=== PATIENT | female | born 1960 | race Caucasian/White ===

== ENCOUNTER 2017-11-24 13:26 | Day surgery (SDC) | payer BC ==
[~2017-11-24 13:26] MED LIST: Buffered Lidocaine 0.9% SYRIN* 5 ML/SYR SYRINGE INTRADERM ONE
[2017-11-24] MEDS ORDERED: ceFAZolin 2 GM PREMIX (*) 2 GM/50 ML BAG IVPB ONE (13:43)
[2017-11-24] MEDS ORDERED: Lidocain 1% EPI 1:100,000 * 30 ML MDV ONE (14:45)
[2017-11-24] MEDS ORDERED: Bupivacaine 0.25% SDV* 30 ML ONE (14:45)
[2017-11-24] MEDS ORDERED: fentaNYL* 50 MCG/ML 2 ML VIAL (100 MCG VIAL) ONE (15:00)
[2017-11-24] MEDS ORDERED: Midazolam* 1 MG/ML 5 ML VIAL (5 MG) ONE (15:01)
[2017-11-24] MEDS ORDERED: Propofol* 10 MG/ML 20 ML BTL IV PUSH ONE (15:01)
[2017-11-24] MEDS ORDERED: Acetaminophen TAB* 325 MG PO PRN (15:24)
[2017-11-24] MEDS ORDERED: Naloxone* 0.4 MG/ML 1 ML VIAL IV PRN (15:24)
[2017-11-24 16:18] VITALS: BP 134/71
== END 2017-11-24 16:40 | disposition home or self-care (01) ==
LOC: OREAST 13:26
PROVIDERS: ATTEND Plastic Surgery
DX: D03.71 Melanoma in situ of right lower limb, including hip (principal); I10 Essential (primary) hypertension; K21.9 Gastro-esophageal reflux disease without esophagitis; J45.909 Unspecified asthma, uncomplicated
CPT/HCPCS: 88305; J0690; J2250; J2704; J3010

== ENCOUNTER 2018-07-09 06:56 | Observation (INO) | payer BC ==
[2018-07-09] MEDS ORDERED: Ondansetron INJ* 2 MG/ML VIAL IV ONE (08:00)
[2018-07-09] MEDS ORDERED: NS 0.9% 1000 ML* 1,000 ML IV ONE (08:00)
--- NOTE | 2018-07-09 08:00 | ED ---
GI/ HPI - HPI Summary HPI Summary: This patient is a 58 year old F presenting to [facility] accompanied by a male with a chief complaint of diarrhea with bright red blood since yesterday. The patient rates the pain 8/10 in severity. Symptoms alleviated by position. Patient reports nausea and non-radiating left-sided abdominal pain. Patient denies vomiting or right sided abdominal pain. The diarrhea started as clear and then had bright red blood. She denies recent antibiotic use. She states that she has been having intermittent diarrhea for a while but yesterday it was much more painful and became bloody. She states that her mother has bladder cancer but she has recently had her bladder tested. No PMHx gallbladder removal. PMHX Hysterectomy, HTN, GERD, hiatal hernia, carpal tunnel, knee surgery. SHx occasional EtOH. No SHx tobacco use, drug use. FHX bladder CA. Home Medications Medication Instructions Recorded Confirmed Type Conjugated Estrogens TAB* 0.625 mg PO QAM 11/21/14 11/18/17 History [Premarin TAB*] DULoxetine DR CAP* [Cymbalta CAP*] 60 mg PO QAM 11/21/14 11/18/17 History Diclofenac Sodium [Diclofenac 75 mg PO BID 11/21/14 11/18/[address]] Loratadine [Alavert] 10 mg PO QAM PRN 11/21/14 11/24/17 History Losartan/HCTZ 100/25 (NF) [Hyzaar 1 tab PO QAM 11/21/14 11/18/17 History 100/25 (NF)] Montelukast Sodium TAB* [Singulair 10 mg PO QAM 11/21/14 11/18/17 History TAB*] Pantoprazole TAB (NF) [Protonix 40 mg PO QAM 11/21/14 11/18/17 History TAB (NF)] amLODIPine TAB* [Norvasc TAB*] 5 mg PO QPM 11/21/14 11/18/17 History Gabapentin CAP(*) [Neurontin 300 300 mg PO TID PRN 12/11/15 11/18/17 History CAP(*)] Naproxen 500 mg PO BID PRN 12/11/15 11/18/17 History Tizanidine HCl [Zanaflex] 4 mg PO BID 06/09/16 05/18/18 History Cyclobenzaprine TAB* [Flexeril 10 10 mg PO BID PRN 11/24/17 11/24/17 History MG TAB*] - History of Current Complaint Chief Complaint: EDAbdPain Time Seen by Provider: 07/09/18 07:36 Stated Complaint: ABD PAIN Hx Obtained From: Patient Onset/Duration: Started Days Ago - 1 Timing: Intermittent Severity: Moderate Current Severity: Moderate - 8/10 Pain Intensity: 8 Location of Pain: LLQ Associated Signs and Symptoms: Positive: Nausea, Bright Red Blood w/Stool, Diarrhea, Abdominal Pain - left. Negative: Dizziness, Vomiting - Allergy/Home Medications Allergies/Adverse Reactions: Allergies Allergy/AdvReac Type Severity Reaction Status Date / Time latex Allergy Severe Rash And Verified 11/24/17 13:53 Itching bacitracin Allergy Rash Verified 07/09/18 08:24 [From Neosporin ([id number])] neomycin Allergy Rash Verified 07/09/18 08:24 [From Neosporin ([id number])] polymyxin B Allergy Rash Verified 07/09/18 08:24 [From Neosporin ([id number])] tramadol Allergy Itching Verified 07/09/18 08:24 ENVIRONMENTAL/SEASONAL Allergy Intermediate SNEEZING, Uncoded 11/24/17 13:53 HAYFEVER ITCHY WATERY EYES Home Medications: Home Medications Conjugated Estrogens TAB(NF) [Premarin 0.45 MG (NF)] 0.45 mg PO DAILY 07/09/18 [ History Confirmed 07/09/18] Diclofenac Sodium 75 mg PO BID 07/09/18 [History Confirmed 07/09/18] Mometasone/Formoter 200/5 MDI* [Dulera 200/5 MDI*] 2 puff INH BID 07/09/18 [ History Confirmed 07/09/18] PMH/Surg Hx/FS Hx/Imm Hx Endocrine/Hematology History: Denies: Hx Diabetes Cardiovascular History: Reports: Hx Hypertension - ON MEDICATION FOR Denies: Hx Pacemaker/ICD, Other Cardiovascular Problems/Disorders Respiratory History: Reports: Hx Asthma - seasonal Denies: Other Respiratory Problems/Disorders GI History: Reports: Hx Gastroesophageal Reflux Disease - ON MEDICATION FOR, Hx Hiatal Hernia Denies: Other GI Disorders Musculoskeletal History: Reports: Hx Arthritis - LEFT KNEE, HANDS, back, Hx Tendonitis, Other Musculoskeletal History - right wrist/hand and arm issues since surgeries and other issues Sensory History: Reports: Hx Contacts or Glasses - CONTACTS, GLASSES Denies: Hx Hearing Aid Opthamlomology History: Reports: Hx Contacts or Glasses - CONTACTS, GLASSES Neurological History: Reports: 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 Denies: Other Neuro Impairments/Disorders Psychiatric History: Reports: Hx Anxiety - mild, on cymbalta for pain but helps with this, Hx Depression - MEDICATION, Hx Panic Disorder - Cancer History Hx Chemotherapy: No Hx Radiation Therapy: No - Surgical History Surgery Procedure, Year, and Place: ARTHROSCOPIC KNEE,LEFT 2003, HYSTERECTOMY 2002, RIGHT CARPAL TUNNEL 2011, RIGHT CUBICAL TUNNEL 2012, LEFT FINGER FX 1994 , RIGHT FOOT BUNIONECTOMY 2005, D-N-C'S X2,BASAL JOINT SURGERY RT THUMB 12/06/13, ARTHROSCOPIC RIGHT KNEE 2014 Hx Anesthesia Reactions: No Infectious Disease History: No Infectious Disease History: Denies: Traveled Outside the [place] in Last 30 Days - Family History Known Family History: Positive: Other - bladder CA - Social History Alcohol Use: Occasionally Alcohol Amount: [place]OLIDA[place] Substance Use Type: Reports: None Smoking Status (MU): Never Smoked Tobacco Have You Smoked in the Last Year: No Review of Systems Positive: Abdominal Pain - left, Diarrhea - bloody, Nausea, Other - right sided abd pain. Negative: Vomiting All Other Systems Reviewed And Are Negative: Yes Physical Exam - Summary Physical Exam Summary: VITAL SIGNS: Reviewed. GENERAL: Patient is a well-developed and nourished female who is lying comfortable in the stretcher. Patient is not in any acute respiratory distress. HEAD AND FACE: No signs of trauma. No ecchymosis, hematomas or skull depressions. No sinus tenderness. EYES: PERRLA, EOMI x 2, No injected conjunctiva, no nystagmus. EARS: Hearing grossly intact. Ear canals and tympanic membranes are within normal limits. MOUTH: Oropharynx within normal limits. NECK: Supple, trachea is midline, no adenopathy, no JVD, no carotid bruit, no c- spine tenderness, neck with full ROM. CHEST: Symmetric, no tenderness at palpation LUNGS: Clear to auscultation bilaterally. No wheezing or crackles. CVS: Regular rate and rhythm, S1 and S2 present, no murmurs or gallops appreciated. ABDOMEN: Soft. Left-sided abdominal tenderness without guarding or rebound. No signs of distention. No masses palpated. Bowel sounds are normal. EXTREMITIES: FROM in all major joints, no edema, no cyanosis or clubbing. NEURO: Alert and oriented x 3. No acute neurological deficits. Speech is normal and follows commands. SKIN: Dry and warm GCS: 15 Triage Information Reviewed: Yes Vital Signs On Initial Exam: Initial Vitals Temp Pulse Resp BP Pulse Ox 97.3 F 68 16 148/79 95 07/09/18 07:27 07/09/18 07:27 07/09/18 07:27 07/09/18 07:27 07/09/18 07:27 Vital Signs Reviewed: Yes Diagnostics - Vital Signs Vital Signs Temp Pulse Resp BP Pulse Ox 07/09/18 07:27 97.3 F 68 16 148/79 95 - Laboratory Result Diagrams: 07/09/18 12:08 07/09/18 07:25 Lab Statement: Any lab studies that have been ordered have been reviewed, and results considered in the medical decision making process. - CT A/P CT Interpretation Completed By: Radiologist Summary of CT Findings: 1. Diverticulosis with very mild descending pericolonic infiltration of the surrounding peritoneal fat which could be seen in the setting of early diverticulitis. 2. Chronic, degenerative and iatrogenic findings described in the body the report unlikely to be related to the patient' s current clinical presentation. ED physician has reviewed this report - EKG 08:11 Cardiac Rate: NL - 63 bpm EKG Rhythm: Sinus Rhythm ST Segment: Normal Summary of EKG Findings: No ST elevations GIGU Course/Dx - Course Course Of Treatment: This patient is a 58 year old F presenting to [facility] accompanied by a male with a chief complaint of diarrhea with bright red blood since yesterday. The patient rates the pain 8/10 in severity. Symptoms alleviated by position. Patient reports nausea and non-radiating left-sided abdominal pain. Patient denies vomiting or right sided abdominal pain. The diarrhea started as clear and then had bright red blood. She denies recent antibiotic use. She states that she has been having intermittent diarrhea for a while but yesterday it was much more painful and became bloody. She states that her mother has bladder cancer but she has recently had her bladder tested. No PMHx gallbladder removal. PMHX Hysterectomy, HTN, GERD, hiatal hernia, carpal tunnel, knee surgery. SHx occasional EtOH. No SHx tobacco use, drug use. FHX bladder CA. Blood work without any significant abnormality except for for WBCs of 12.1, hemoglobin 11.3 hematocrit 35 platelets 267. Is no bandemia. Potassium at 3.4 for which the patient was given potassium chloride. CRP history 4.27 and the urinalysis is negative for UTI. In the ED course the patient was given IV fluids for hydration and she was given morphine for the pain. When she was in the ER she had 2 episodes of significant rectal bleed. It was bright red in her rectum. Abdominal pelvic CT impression: diverticulosis with a very mild ascending very colonic infiltration of the surrounding peritoneal fat which could be seen in the setting of elderly diverticulitis. Chronic degenerative iatrogenic findings. Therefore, she was given ciprofloxacin and Flagyl. Because of the rectal bleed I decided to admit the patient to the hospital services for observation. I discussed the case with Dr. Hodges from the hospital services who accepted the patient for admission. Patient is hemodynamically stable alert oriented 3. - Diagnoses Provider Diagnoses: Diverticulitis, GI bleed - Physician Notifications Discussed Care Of Patient With: Tanvir Hodges Time Discussed With Above Provider: 11:25 Instructed by Provider To: Admit As Inpatient Discharge - Sign-Out/Discharge Documenting (check all that apply): Patient Departure - admission - Discharge Plan Condition: Fair Disposition: ADMITTED TO [facility] - Billing Disposition and Condition Condition: FAIR Disposition: Admitted to [facility] - Attestation Statements Document Initiated by Liz: Yes Documenting Scribe: Jian Chow Provider For Whom Liz is Documenting (Include Credential): Dino Jones MD Scribe Attestation: Jian Vega, davinaed for Dino Jones MD on 07/09/18 at 1851. Scribe Documentation Reviewed: Yes Provider Attestation: The documentation as recorded by the Jian dong accurately reflects the service I personally performed and the decisions made by me, Dino Jones MD Status of Scribe Document: Viewed
[2018-07-09] MEDS ORDERED: Morphine VIAL* 4 MG/ML VIAL (1 ml vial) IV ONE ×2 (08:04→10:33)
[2018-07-09 08:27] LABS: ABS Basophils 0.1 10^3/ul (0-0.2); ABS Eosinophils 0.4 10^3/ul (0-0.6); ABS Lymphocytes 2.8 10^3/ul (1.0-4.8); ABS Monocytes 0.7 10^3/ul (0-0.8); ABS Neutrophils 8.1 10^3/ul (1.5-7.7); ABS Nucleated RBC 0 10^3/ul; Eosinophil % 3.6 %; Hematocrit 35 % (35-47); Hemoglobin 11.3 g/dl (12.0-16.0); Lymphocyte % 23.1 %; Mean Corpuscular HGB Conc 33 g/dl (31-36); Mean Corpuscular Hemoglobin 26 pg (27-31); Mean Corpuscular Volume 79 fL (80-97); Mean Platelet Volume 7.9 fL (7.4-10.4); Nucleated Red Blood Cells % 0.1; Platelet Count 267 10^3/ul (150-450); Red Cell Distribution Width 15 % (10.5-15); White Blood Count 12.1 10^3/ul (3.5-10.8)
[2018-07-09 08:46] LABS: Albumin 3.6 g/dL (3.2-5.2); Albumin/Globulin Ratio 1.1 (1-3); BUN/Creatinine Ratio 27.6 (8-20); C Reactive Protein 24.27 mg/L (<8.01); Globulin 3.3 g/dL (2-4); Magnesium 1.9 mg/dL (1.9-2.7); Potassium 3.4 mmol/L (3.5-5.0); Total Bilirubin 0.3 mg/dL (0.2-1.0); Total Protein 6.9 g/dL (6.4-8.9)
[2018-07-09] MEDS ORDERED: Iohexol 300* (CONTRAST) 10 ML SDV IV ONE (10:00)
[2018-07-09 10:17] LABS: Urine Appearance Clear; Urine Bilirubin Negative (Negative); Urine Blood Negative (Negative); Urine Color Yellow; Urine Glucose Negative (Negative); Urine Ketones Negative (Negative); Urine Nitrite Negative (Negative); Urine Protein Negative (Negative); Urine Specific Gravity 1.009 (1.010-1.030); Urine Urobilinogen Negative (Negative)
[2018-07-09] MEDS ORDERED: metroNIDAZOLE TAB* 250 MG PO ONE (11:10)
[2018-07-09] MEDS ORDERED: Ciprofloxacin 400MG IVPREMIX(* 400 MG/200 ML BAG IVPB ONE (11:12)
[2018-07-09] MEDS ORDERED: Potassium Chlor TAB* 20 MEQ TAB.ER PO ONE (11:14)
[2018-07-09] MEDS ORDERED: Ondansetron INJ* 2 MG/ML VIAL IV PRN (12:18)
[2018-07-09] MEDS ORDERED: NS 0.9% 1000 ML* 1,000 ML IV SCH (12:30)
[2018-07-09] MEDS ORDERED: Enoxaparin(*) 40 MG/0.4 ML SYR SUBCUT SCH (13:00)
[2018-07-09 13:08] LABS: Hematocrit 33 % (35-47); Hemoglobin 10.5 g/dl (12.0-16.0)
[2018-07-09] MEDS: metroNIDAZOLE TAB* 250 MG PO SCH ×2 (14:20→19:27)
[2018-07-09] MEDS: Acetaminophen TAB* 325 MG PO PRN ×2 (14:20→18:30)
[2018-07-09] MEDS ORDERED: amLODIPine TAB* 5 MG PO SCH (18:00)
--- NOTE | 2018-07-09 18:29 | HP ---
AMENDED REPORT NOW INCLUDES DESIGNATED COSIGNER CC: Dr. Omid Perez * HISTORY AND PHYSICAL: DATE OF ADMISSION: 07/09/18 PRIMARY CARE PROVIDER: Dr. Omid Perez. ATTENDING PHYSICIAN: Dr. Tanvir Hodges * (dictated by Shahla Zuniga NP). CHIEF COMPLAINT: 1. Abdominal pain. 2. Diarrhea. 3. Bright red blood per rectum. HISTORY OF PRESENT ILLNESS: Ms. Moreland is a 58-year-old female with past medical history of asthma, anxiety, hypertension, GERD, and fibromyalgia, who presents to the emergency room today with complaints of abdominal pain and diarrhea since yesterday. The patient reports that she was eating out at a restaurant and had steak fries and a salad, which is a typical meal for her. Approximately 20 minuets after eating, she began having left upper and lower quadrant pain. Once arriving home, she had diarrhea for approximately 2 hours. She did have some associated nausea, which was relieved after the diarrhea. She describes the pain as 8/10 at the worst, waxing and waning. She did have multiple episodes of diarrhea overnight, which were normal appearing and not bloody, although this morning after waking, she had an episode of diarrhea, where she reports there were small clots and specks of blood. She denies any quantifiable bright red blood per rectum. She has been passing a significant amount of gas today, though she does report that her pain has decreased to a 6/ 10. She reports a decreased appetite at the onset of this pain yesterday. The patient does report that she has had similar episodes to this in the past, where she developed sudden onset abdominal pain with associating diarrhea, though it has never become bloody. She states she had approximately 2 episodes in June and it sounds as though these episodes have been becoming more frequent in the last few months. She cannot correlate the episodes with any particular food. She presented to the emergency room today because of the concern for blood in her stool. In the emergency room, the patient was found to have a mild leukocytosis with a white blood count of 12.1. She was not noted to be anemic, though her potassium was slightly low at 3.4. Her CRP is mildly elevated at 24. She had an abdomen and pelvis CT, which showed possible early diverticulitis. She did have one further episode of diarrhea here in the emergency room, though was not observed by staff. Because of the concern for GI bleed and diverticulitis, the hospitalist service was asked to evaluate for admission. PAST MEDICAL HISTORY: 1. Asthma. 2. Anxiety. 3. Hypertension. 4. GERD. 5. Fibromyalgia. 6. MRSA infection (approximately 10 years ago). PAST SURGICAL HISTORY: 1. Melanoma excision of the right medial knee. 2. Hysterectomy. 3. Bilateral knee arthroscopy. 4. Right foot bunionectomy. 5. Carpal tunnel release HOME MEDICATIONS: 1. Amlodipine 5 mg p.o. at bedtime. 2. Premarin 0.45 mg p.o. daily. 3. Cyclobenzaprine 10 mg p.o. t.i.d. p.r.n. 4. Diclofenac 75 mg p.o. b.i.d. 5. Duloxetine 60 mg p.o. daily. 6. Losartan/hydrochlorothiazide 100/25 mg 1 tab p.o. daily. 7. Dulera 200/5 two puffs b.i.d. 8. Singulair 10 mg p.o. daily. 9. Pantoprazole 40 mg p.o. daily. ALLERGIES: LATEX, NEOSPORIN, and TRAMADOL. FAMILY HISTORY: The patient's mother had a history of hypertension and asthma and from cardiopulmonary arrest. The patient's father from a myocardial infarction. SOCIAL HISTORY: The patient denies any tobacco or recreational drug use. She reports occasional social alcohol use less than 1 time per month. She is retired and lives at home with her . Her , Sandeep, would be her surrogate decision maker in the event she is unable to make her own decisions. REVIEW OF SYSTEMS: The patient denies any fevers, chest pain, shortness of breath, dysuria, headaches, myalgias, and rashes. An 11-point review of systems was performed and all other pertinent positive and negative findings are noted above and in the HPI. All other systems are negative. PHYSICAL EXAMINATION GENERAL: Ms. Moreland is a well-developed, well-nourished, overweight white woman sitting up in bed in no acute distress. She appears her stated age. VITAL SIGNS: Temp 97.3, heart rate 61, respiratory rate 16, oxygen saturation 96 % on room air, blood pressure 144/81. HEENT: Head is atraumatic, normocephalic. Visual cox are grossly intact. Pupils equal, round, and reactive to light and accommodation. Extraocular movements intact. Mucous membranes are moist and without lesions. NECK: Full range of motion. Thyroid not palpable. Trachea midline. No lymphadenopathy. RESPIRATORY: Symmetrical chest expansion. No chest wall deformities. Lungs clear to auscultation throughout. No rhonchi, wheezes, or rales. CARDIOVASCULAR: Regular rate and rhythm. S1, S2 present. No murmurs, rubs, or gallops. No JVD. ABDOMEN: Soft and nondistended. Tender to palpation throughout, though tenderness is greater in the left upper and left lower quadrants. No hepatosplenomegaly. EXTREMITIES: Skin warm and smooth bilaterally. No edema. No clubbing or cyanosis. Pedal pulses 2+ bilaterally. MUSCULOSKELETAL: Full range of motion. No pain or deformities. NEURO: Awake, alert, and oriented x4. Cranial nerves II through XII are grossly intact. Moves all extremities. SKIN: Grossly intact without lesions. DIAGNOSTIC STUDIES/LAB DATA: WBC 12.1, RBC 4.4, hemoglobin 11.3, hematocrit 35 , platelets 267. Sodium 140, potassium 3.4, chloride 102, carbon dioxide 30, BUN 16, creatinine 0.58, glucose 98. Lactic acid 1.2. Troponin 0.00. CRP 24.27. Lipase 16. EKG shows normal sinus rhythm with a rate of 63. No ischemic changes. Abdomen and pelvis CT reads as diverticulosis with very mild distending pericolonic infiltration of the surrounding peritoneal fall, which could be seen in the setting of early diverticulitis. Chronic degenerative and iatrogenic findings described in the body of the report unlikely to be related to the patient's current clinical presentation. ASSESSMENT AND PLAN: Ms. Moreland is a 58-year-old female with a past medical history of asthma, anxiety, hypertension, gastroesophageal reflux disease, and fibromyalgia who presented to the emergency room today with complaints of abdominal pain, diarrhea, and bright red blood per rectum and was found to have mild diverticulitis. The patient will be admitted to observation for: 1. Diverticulitis. The CT findings are indicative of a possible mild diverticulitis, though the patient's clinical presentation is highly suggestive of diverticulitis. Her daily NSAID use is likely a large contributing factor. She has been given 1 dose of Cipro and Flagyl here in the emergency room. I will continue Cipro and Flagyl p.o. I have placed her on a full liquid diet at this time, which I will advance if she is tolerating this. 2. Lower gastrointestinal bleed. The patient's gastrointestinal bleed was difficult for her to quantify, though at this point, her hemoglobin and hematocrit are around her baseline. I will check serial H and Hs q.6 hours and again in the morning, although it sounds as though the bleeding has decreased from this onset this morning. I will give her 1 bag of fluids in addition to what she has received in the emergency room. At this point, I do not think that a gastroenterology consult is necessary. It sounds as though the gastrointestinal bleed is secondary to the diverticulitis. I do think that she may benefit from GI followup as an outpatient. We will maintain 2 IVs in the unlikely event that she will require a blood transfusion. 3. Asthma. The patient's respiratory status is stable at this time. I will continue her Dulera and Singulair. 4. Hypertension. In the emergency room, the patient has had a couple of hypertensive readings, though at this point her systolic blood pressure is in the 140s. I will continue her amlodipine, losartan, and hydrochlorothiazide. 5. Gastroesophageal reflux disease. There is no concern for upper gastrointestinal bleed at this time. I will continue her pantoprazole. 6. Fibromyalgia. At this point, I will hold the patient's diclofenac. I think it is highly likely that this is contributing to her gastrointestinal bleeding and diverticulitis and she should likely not resume this at discharge. I will continue her Flexeril at this point and she can have acetaminophen p.r.n. We will order additional analgesics if necessary. I will also continue her duloxetine. 7. Fluids, electrolytes, and nutrition. Again, I will rehydrate the patient with 1 bag of normal saline in addition to what she has received in the emergency room. She was slightly hypokalemic in the emergency room, though they have replaced her potassium down here. She can have a full liquid diet at this time and we will advance that if she is tolerating it appropriately. 8. Code status. The patient is a full code. 9. DVT prophylaxis. According to the DVT Risk Assessment, the patient scores a 2, putting her at moderate risk. Because of the concern for gastrointestinal bleed, we will use SCDs and ambulation only at this time. TIME SPENT: Approximately 60 minutes was spent on this admission, greater than half of that time spent on [id number] with the patient and her obtaining my history, performing my physical exam, and reviewing the plan of care. This case has been reviewed with my attending, Dr. Hodges, who is in agreement with the plan of care. SHAHLA ZUNIGA, TIMBER TRIMMER [id number]/CPS #: [id number] TIFFANI
[2018-07-09] MEDS: Cyclobenzaprine TAB* 10 MG PO SCH ×2 (18:32→19:36)
[2018-07-09 19:00] LABS: Hematocrit 33 % (35-47); Hemoglobin 10.7 g/dl (12.0-16.0)
[2018-07-09] MEDS: Ciprofloxacin TAB* 500 MG PO SCH (19:27)
[2018-07-09] MEDS ORDERED: Cyclobenzaprine TAB* 10 MG ONE (19:35)
[2018-07-09] MEDS: Mometasone/Formoter 200/5 MDI INH SCH (19:58)
[2018-07-10 01:09] LABS: Hematocrit 31 % (35-47)
[2018-07-10] MEDS: Mometasone/Formoter 200/5 MDI INH SCH ×2 (06:22→07:29)
[2018-07-10 07:34] LABS: ABS Basophils 0.1 10^3/ul (0-0.2); ABS Eosinophils 0.4 10^3/ul (0-0.6); ABS Lymphocytes 2.8 10^3/ul (1.0-4.8); ABS Monocytes 0.5 10^3/ul (0-0.8); ABS Neutrophils 6.2 10^3/ul (1.5-7.7); ABS Nucleated RBC 0 10^3/ul; Eosinophil % 4.3 %; Hematocrit 32 % (35-47); Hemoglobin 10.4 g/dl (12.0-16.0); Lymphocyte % 27.9 %; Mean Corpuscular HGB Conc 33 g/dl (31-36); Mean Corpuscular Hemoglobin 26 pg (27-31); Mean Corpuscular Volume 80 fL (80-97); Nucleated Red Blood Cells % 0; Platelet Count 218 10^3/ul (150-450); Red Blood Count 3.98 10^6/ul (4.00-5.40); Red Cell Distribution Width 15 % (10.5-15); White Blood Count 10.1 10^3/ul (3.5-10.8)
[2018-07-10 07:38] VITALS: BP 138/62
[2018-07-10 07:47] LABS: Calcium 8.5 mg/dL (8.6-10.3); EGFR Non-African American 115.2 (>60); Potassium 3.5 mmol/L (3.5-5.0)
[2018-07-10] MEDS: metroNIDAZOLE TAB* 250 MG PO SCH (08:08)
[2018-07-10] MEDS: Cyclobenzaprine TAB* 10 MG PO SCH (08:08)
[2018-07-10] MEDS: Ciprofloxacin TAB* 500 MG PO SCH (08:08)
[2018-07-10] MEDS ORDERED: Losartan TAB* 25 MG PO SCH (09:00)
[2018-07-10] MEDS ORDERED: Montelukast Sodium TAB* 10 MG PO SCH (09:00)
[2018-07-10] MEDS ORDERED: Hydrochlorothiazide TAB* 25 MG PO SCH (09:00)
[2018-07-10] MEDS ORDERED: DULoxetine DR CAP* 60 MG CAP.DR PO SCH (09:00)
[2018-07-10] MEDS ORDERED: CMC:Pantoprazole TAB (NF) 40 MG TAB PO SCH (09:00)
--- NOTE | 2018-07-10 22:28 | DS ---
CC: Dr. Omid Perez * DISCHARGE SUMMARY: DATE OF ADMISSION: 07/09/18 DATE OF DISCHARGE: 07/10/18 PRIMARY CARE PROVIDER: Dr. Omid Perez. ATTENDING PHYSICIAN: Dr. Ninoska Paz * (dictated by Shahla Zuniga NP). PRIMARY DIAGNOSES: 1. Acute diverticulitis. 2. Lower gastrointestinal bleed secondary to diverticulitis. SECONDARY DIAGNOSES: 1. Asthma. 2. Hypertension. 3. Gastroesophageal reflux disease. 4. Fibromyalgia. STUDIES WHILE IN THE HOSPITAL: 1. EKG on 07/09/18 showed normal sinus rhythm with a rate of 63. No ischemic changes. QTc 436. 2. Abdomen and pelvis CT on 07/09/18 reads as diverticulosis with very mild descending pericolonic infiltration of the surrounding peritoneal fat, which could be seen in the setting of early diverticulitis. Chronic degenerative and iatrogenic findings described in the body of the report unlikely to be related to the patient's current clinical presentation. HISTORY OF PRESENT ILLNESS AND HOSPITAL COURSE: Ms. Moreland is a 58-year-old female with a past medical history of asthma, anxiety, hypertension, GERD, and fibromyalgia, who presented to the emergency room on 07/09/18 with complaints of abdominal pain, diarrhea, and bloody stool. Please see the history and physical by myself for complete summary of the events leading up to this hospitalization. In short, the patient has had short episodes of abdominal pain for quite some time. It sounds as though these episodes were becoming more frequent. She had 2 episodes in June where she had abdominal pain with diarrhea which spontaneously resolved. On the day prior to discharge, the patient was eating at a restaurant and after she finished eating, she developed 8/10 abdominal pain. She had multiple episodes of diarrhea which was normal appearing at first though in the morning of the day of admission, she notes that the diarrhea had a small amount of blood in it. She was not able to quantify the amount of blood although it sounds as though there were small clots and specks of blood. There was no severe bleeding. In the emergency room , the patient was not anemic. She did have one additional episode of bloody diarrhea in the emergency room. Because of the concern for GI bleed secondary to diverticulitis, she was admitted by the hospitalist service. The patient had an uneventful night. She was continued on Cipro and Flagyl, first doses were given in the emergency room. As of this morning, she reports that she has not had any bloody diarrhea overnight and her abdominal pain has completely resolved. She was able to tolerate a full liquid diet without difficulty. On exam, she has normoactive bowel sounds throughout. She is soft and nontender to palpation throughout. She is anxious to return home. Ms. Moreland is stable for discharge today. Vital signs are as follows: Temperature 98.2, heart rate 71, respiratory rate 16, oxygen saturation 94% on room air, blood pressure 138/62. DISCHARGES MEDICATIONS: New medications: 1. Ciprofloxacin 500 mg p.o. b.i.d. x9 days. 2. Flagyl 500 mg p.o. t.i.d. x9 days. Continued medications: 1. Amlodipine 5 mg p.o. daily. 2. Premarin 0.45 mg p.o. daily. 3. Cyclobenzaprine 10 mg p.o. t.i.d. p.r.n. 4. Duloxetine 60 mg p.o. daily. 5. Losartan/hydrochlorothiazide 100/25 one tab p.o. daily. 6. Dulera 200/5 MDI 2 puffs b.i.d. 7. Singulair 10 mg p.o. daily. 8. Protonix 40 mg p.o. daily. Discontinued medications: 1. Diclofenac. DISCHARGE PLAN: Ms. Moreland will be discharged back home. Activity will be as tolerated. Diet should be soft, advancing slowly to a regular diet. She has been given diet education and is in understanding. Medications are as noted above. She has been prescribed 9 days worth of Cipro and Flagyl to complete a total of 10 days of antibiotic therapy. The patient has been advised to discontinue her diclofenac as this was likely a large contributor to her GI bleeding. I have advised her that she will need to discuss this with her PCP as she would likely need to be placed on a different medication for her fibromyalgia. She should follow up with her PCP in 4 to 7 days. I have also advised her that she should have a colonoscopy within the next couple of months. She reports that her last one was at the age of 48 and she was instructed to follow up in 10 years. So, she would be due now. She has verbalized understanding. She has been advised to return to the emergency room or nearest hospital for any worsening of symptoms, shortness of breath, lightheadedness, dizziness, chest discomfort, high fevers, chills, night sweats , loss of consciousness or any other worrisome signs or symptoms. SHAHLA ZUNIGA, [employer] [id number]/[facility] #: [id number] TIFFANI
== END 2018-07-10 10:05 | disposition home or self-care (01) ==
LOC: ED 06:56 → MED 12:43
PROVIDERS: ADMIT Internal Medicine; ATTEND Internal Medicine
DX: K57.92 Diverticulitis of intestine, part unspecified, without perforation or abscess without bleeding (principal); K92.2 Gastrointestinal hemorrhage, unspecified; J45.909 Unspecified asthma, uncomplicated; I10 Essential (primary) hypertension; K21.9 Gastro-esophageal reflux disease without esophagitis; M79.7 Fibromyalgia; R11.0 Nausea
CPT/HCPCS: 36415; 74177; 80048; 80053; 81003; 82550; 83605; 83690; 83735; 83880; 84484; 85014; 85018; 85025; 86140; 87641; 93005; 94640; 96361; 96365; 96372; 96375; 99283; A9270-GY; G0378; J0744; J2270; J2405; Q9967

== ENCOUNTER 2023-08-23 10:56 | Observation (INO) ==
[~2023-08-23 10:56] MED LIST changes: -Buffered Lidocaine 0.9% SYRIN* 5 ML/SYR SYRINGE INTRADERM ONE; +HYDROmorphone 1 MG/1 ML SYRINGE IV PRN; +Naloxone 0.4 mg VIAL 0.4 mg/ml 1 ml VIAL IV PRN; +Ondansetron 4 mg VIAL 2 MG/ML 2 ml VIAL IV PRN; +fentaNYL 100 mcg/2 ml 50 MCG/ML VIAL IV PRN
[2023-08-23 12:04] LABS: Rapid COVID-19 Molecular Undetected (Undetected)
[2023-08-23] MEDS ORDERED: ceFAZolin 2 GM PREMIX 2 GM/50 ML BAG ONE (12:11)
[2023-08-23] MEDS ORDERED: Tranexamic Acid 1 GM/100ML BAG 2,000 MG/200 ML BAG IV ONE (12:19)
[2023-08-23] MEDS ORDERED: Propofol 10 MG/ML 20 ML BTL ONE (12:26)
[2023-08-23] MEDS ORDERED: Propofol 0 MG/0 ML BTL ONE (12:26)
[2023-08-23] MEDS ORDERED: Lidocaine 2% PF 5 ML VIAL ONE (12:28)
[2023-08-23] MEDS: Buffered Lidocaine 1% SYRIN 1 ml INTRADERM ONE (12:34)
[2023-08-23] MEDS: Lactated Ringers 1000 ml BAG 1,000 ML IV SCH ×2 (12:34→19:26)
[2023-08-23] MEDS ORDERED: Midazolam 2 mg/2 ml VIAL 1 mg/ml 2 ml VIAL (2 mg) ONE (13:55)
[2023-08-23] MEDS ORDERED: Dexamethasone IV 4 MG/ML VIAL 1 ml VIAL ONE (13:55)
[2023-08-23] MEDS ORDERED: ROPIVACAINE 5 MG/ML 30 ML BTL (0.5%) ONE ×2 (13:55→15:44)
[2023-08-23] MEDS ORDERED: Albuterol 2.5mg/3 ml (0.083%) NEB.SOLN INH ONE (14:10)
[2023-08-23] MEDS: Albuterol 2.5mg/3 ml (0.083%) NEB.SOLN INH ONE (14:17)
[2023-08-23] MEDS ORDERED: fentaNYL 250 mcg/5 ml 50 MCG/ML 5 ml VIAL (250 MCG) ONE (14:32)
[2023-08-23] MEDS ORDERED: Rocuronium 50 mg VIAL 10 mg/ml 5 ml VIAL (50 mg) ONE (14:32)
[2023-08-23] MEDS ORDERED: KETAMINE HCL 10 MG/ML 20 ml VIAL (200 MG) ONE (14:42)
[2023-08-23] MEDS ORDERED: Morphine 2 MG/ML SYRINGE IV PRN (14:53)
[2023-08-23] MEDS ORDERED: Ondansetron 4 mg VIAL 2 MG/ML 2 ml VIAL IV PRN (14:53)
[2023-08-23] MEDS ORDERED: Magnesium Hydroxide LIQ 30 ML UDC PO PRN (14:53)
[2023-08-23] MEDS ORDERED: Ondansetron ODT 4 mg TAB 4 MG TAB PO PRN (14:53)
[2023-08-23] MEDS ORDERED: Lactulose 30 ml UDC PO PRN (14:53)
[2023-08-23] MEDS ORDERED: Bupivacaine-MPF SPINAL 7.5 MG/ML - 2ML AMP ONE (15:08)
[2023-08-23] MEDS ORDERED: Ondansetron 4 mg VIAL 2 MG/ML 2 ml VIAL ONE (16:13)
[2023-08-23] MEDS: Magnesium Hydroxide LIQ 30 ML UDC PO SCH (19:31)
[2023-08-23] MEDS: Simvastatin 10 mg TAB (NF) PO SCH (21:34)
[2023-08-23] MEDS: ceFAZolin 1 GM ADVAN 1 GM in NS 0.9% 50 ML 50 ML IVPB SCH (23:29)
[2023-08-24 05:53] LABS: Hematocrit 27.4 % (35-45); Hemoglobin 8.9 g/dL (11.5-14.3); Mean Platelet Volume 8.3 fL (7.5-11.2); Platelet Count 242 10^3/uL (150-450)
[2023-08-24 06:04] LABS: Calcium 8.7 mg/dL (8.6-10.3); Creatinine, Serum 0.68 mg/dL (0.51-0.95); eGFR CKD-EPI 96.6 (>60)
[2023-08-24] MEDS: DULoxetine DR 60 mg CAP PO SCH (08:52)
[2023-08-24] MEDS: Cholecalciferol (VIT D3) 1,000 unit TAB PO SCH (08:52)
[2023-08-24] MEDS: Potassium Chlor 20 meq TAB.ER PO SCH (08:53)
[2023-08-24] MEDS: Vitamin THERAPEUTIC TAB PO SCH (08:54)
[2023-08-24 10:39] VITALS: BP 125/55
== END 2023-08-24 14:25 | disposition home or self-care (01) ==
LOC: AA 10:56 → INTOOBSV 10:56 → SSU 18:32
PROVIDERS: ADMIT Orthopaedic Surgery Adult Reconstructive Orthopaedic Surgery; ATTEND Orthopaedic Surgery Adult Reconstructive Orthopaedic Surgery

== ENCOUNTER 2024-03-13 11:31 | Observation (INO) ==
[~2024-03-13 11:31] MED LIST changes: -HYDROmorphone 1 MG/1 ML SYRINGE IV PRN; +Metoclopramide 5 MG/ML VIAL (10 mg) IV PRN; +NS 0.45% 1000 ml BAG 1,000 ML IV SCH
[2024-03-13] MEDS ORDERED: Propofol 10 MG/ML 20 ML BTL ONE ×2 (11:56→15:23)
[2024-03-13] MEDS: Buffered Lidocaine 1% SYRIN 1 ml INTRADERM ONE (12:19)
[2024-03-13] MEDS: Acetaminophen IV 1 GM/100ML 1,000 MG/100 ML BAG IV ONE (12:19)
[2024-03-13 12:26] LABS: Rapid COVID-19 Molecular Undetected (Undetected)
[2024-03-13] MEDS ORDERED: Tranexamic Acid 1 GM/100ML BAG 2,000 MG/200 ML BAG IV ONE (12:38)
[2024-03-13] MEDS ORDERED: Scopolamine 1 mg/72hr PATCH ONE (12:38)
[2024-03-13] MEDS ORDERED: ceFAZolin 2 GM PREMIX 2 GM/50 ML BAG ONE (12:38)
[2024-03-13] MEDS: Scopolamine 1 mg/72hr PATCH TRANSDERM ONE (12:42)
[2024-03-13] MEDS: Lactated Ringers 1000 ml BAG 1,000 ML IV SCH ×2 (12:44→18:58)
[2024-03-13] MEDS ORDERED: Midazolam 2 mg/2 ml VIAL 1 mg/ml 2 ml VIAL (2 mg) ONE ×2 (12:54→14:05)
[2024-03-13] MEDS ORDERED: ROPIVACAINE 5 MG/ML 30 ML BTL (0.5%) ONE ×2 (12:54→13:32)
[2024-03-13] MEDS ORDERED: Phenylephrine 40 mcg/mL 10mL (400mcg) SYRINGE ONE (14:21)
[2024-03-13] MEDS ORDERED: Magnesium Hydroxide LIQ 30 ML UDC PO PRN (14:51)
[2024-03-13] MEDS ORDERED: Ondansetron ODT 4 mg TAB 4 MG TAB PO PRN (14:51)
[2024-03-13] MEDS ORDERED: Calcium Carb (TUMS) 500 mg CHEW TAB PO PRN (14:51)
[2024-03-13] MEDS ORDERED: Ondansetron 4 mg VIAL 2 MG/ML 2 ml VIAL IV PRN (14:51)
[2024-03-13] MEDS ORDERED: Lactulose 30 ml UDC PO PRN (14:51)
[2024-03-13] MEDS ORDERED: fentaNYL 100 mcg/2 ml 50 MCG/ML VIAL ONE (15:27)
[2024-03-13] MEDS ORDERED: Albuterol HFA INHALER 8 gm MDI INH PRN (17:47)
[2024-03-13] MEDS: Morphine 2 MG/ML SYRINGE IV PRN (18:45)
[2024-03-13] MEDS: Morphine 2 MG/ML SYRINGE ONE (18:59)
[2024-03-13] MEDS: Magnesium Hydroxide LIQ 30 ML UDC PO SCH (20:39)
[2024-03-13] MEDS: ceFAZolin 2 GM PREMIX 2 GM/50 ML BAG IV SCH (22:20)
[2024-03-13] MEDS: Mometasone/Formoter 200/5 MDI INH SCH (22:24)
[2024-03-14 05:57] LABS: Hematocrit 27.1 % (35-45); Mean Platelet Volume 7.7 fL (7.5-11.2); Platelet Count 230 10^3/uL (150-450)
[2024-03-14 06:29] LABS: Calcium 8.4 mg/dL (8.6-10.3); Creatinine, Serum 0.76 mg/dL (0.51-0.95); Potassium 3.9 mmol/L (3.5-5.0); eGFR CKD-EPI 86.9 (>60)
[2024-03-14] MEDS: DULoxetine DR 60 mg CAP PO SCH (09:06)
[2024-03-14] MEDS: Vitamin THERAPEUTIC TAB PO SCH (09:07)
[2024-03-14 14:00] VITALS: BP 120/58
== END 2024-03-14 15:30 | disposition home or self-care (01) ==
LOC: OR 11:31 → SSU 11:31
PROVIDERS: ADMIT Physician Assistant; ATTEND Orthopaedic Surgery Adult Reconstructive Orthopaedic Surgery